=== PATIENT | female | born 1985 | race Caucasian/White ===

== ENCOUNTER 2016-08-21 05:47 | Inpatient (IN) | payer MEDICAID ==
[~2016-08-21] VITALS: Ht 172.7 cm; Wt 118.2 kg
[2016-08-21] MEDS ORDERED: LACTATED RINGERS 1,000 ML IV SCH ×2 (05:50)
[2016-08-21] MEDS ORDERED: OXYTOCIN 30U/ 0.9% NaCL 500ML 500 ML IV SCH (05:50)
[2016-08-21 06:00] VITALS: BP 106/70
[2016-08-21] MEDS ORDERED: PLEASE ENTER ALLERGIES MC SCH ×2 (06:00)
[2016-08-21] MEDS ORDERED: SODIUM CITRATE/CITRIC ACID 30 ML UDC PO ONE (06:00)
[2016-08-21] MEDS ORDERED: METOCLOPRAMIDE 5 MG/ML, 2ML IV ONE (06:00)
[2016-08-21] MEDS ORDERED: LACTATED RINGERS 1,000 ML IVBOLUS ONE (06:00)
[2016-08-21] MEDS ORDERED: METOCLOPRAMIDE 5 MG/ML, 2ML ONE ×2 (06:26→16:20)
[2016-08-21] MEDS ORDERED: NEWBORN KIT ONE (06:26)
[2016-08-21] MEDS ORDERED: SODIUM CITRATE/CITRIC ACID 30 ML UDC ONE ×2 (06:26→16:20)
[2016-08-21] MEDS: LACTATED RINGERS 1,000 ML IV SCH ×4 (09:12→19:12)
[2016-08-21] MEDS ORDERED: OXYTOCIN 30U/ 0.9% NaCL 500ML 500 ML ONE (09:18)
[2016-08-21] MEDS ORDERED: ONDANSETRON 2MG/ML, 2ML IV PRN (09:30)
[2016-08-21] MEDS ORDERED: CALCIUM CARBONATE 500 MG TAB.CHEW PO PRN (09:30)
[2016-08-21] MEDS ORDERED: METHYLERGONOVINE 0.2 MG/ML IM PRN (09:30)
[2016-08-21] MEDS ORDERED: MISOPROSTOL 200 MCG TABLET PR PRN (09:30)
[2016-08-21] MEDS ORDERED: METOCLOPRAMIDE 5 MG/ML, 2ML IV PRN (09:30)
[2016-08-21] MEDS ORDERED: morphine SULFATE 10 MG/ML, 1ML IVPush PRN ×2 (09:30)
[2016-08-21] MEDS: KETOROLAC 30 MG/1 ML IV SCH ×3 (09:30→19:18)
[2016-08-21] MEDS ORDERED: OXYcodone IR 5MG TABLET PO PRN (09:30)
[2016-08-21] MEDS ORDERED: BISACODYL 10 MG SUPP PR PRN (09:30)
[2016-08-21] MEDS ORDERED: ACETAMINOPHEN 325 MG TABLET ONE (10:12)
[2016-08-21] MEDS ORDERED: OXYcodone IR 5MG TABLET ONE (10:13)
[2016-08-21] MEDS: ACETAMINOPHEN 325 MG TABLET PO SCH (10:14)
[2016-08-21] MEDS: OXYcodone IR 5MG TABLET PO PRN ×3 (10:14→22:18)
[2016-08-21] MEDS: OXYTOCIN 30U/ 0.9% NaCL 500ML 500 ML IV SCH ×2 (10:18→19:12)
[2016-08-21 11:45] VITALS: BP 117/76
[2016-08-21 12:17] VITALS: BP 166/72
[2016-08-21] MEDS: SIMETHICONE 80 MG CHEW TAB PO PRN ×2 (12:48→22:15)
[2016-08-21] MEDS: PRENATAL VIT/IRON/FA 1 EACH TABLET PO SCH (13:13)
[2016-08-21 15:50] VITALS: BP 116/72
[2016-08-21] MEDS ORDERED: CEFAZOLIN 1,000 MG ONE (16:20)
[2016-08-21] MEDS ORDERED: EPHEDRINE 50 MG/ML, 1ML ONE (16:20)
[2016-08-21] MEDS ORDERED: KETOROLAC 30 MG/1 ML ONE (16:20)
[2016-08-21] MEDS ORDERED: OXYTOCIN 10 UNITS/ML, 1ML ONE (16:20)
[2016-08-21 20:00] VITALS: BP 112/75
[2016-08-22 00:20] VITALS: BP 130/90
[2016-08-22] MEDS: LACTATED RINGERS 1,000 ML IV SCH ×5 (01:12→17:12)
[2016-08-22] MEDS: KETOROLAC 30 MG/1 ML IV SCH ×4 (01:30→21:33)
[2016-08-22] MEDS: SIMETHICONE 80 MG CHEW TAB PO PRN ×2 (01:30→08:59)
[2016-08-22 05:00] VITALS: BP 118/78
[2016-08-22] MEDS: OXYTOCIN 30U/ 0.9% NaCL 500ML 500 ML IV SCH ×2 (05:12→15:12)
[2016-08-22] MEDS: OXYcodone IR 5MG TABLET PO PRN (05:45)
[2016-08-22 08:36] VITALS: BP 130/74
[2016-08-22] MEDS: PRENATAL VIT/IRON/FA 1 EACH TABLET PO SCH (08:59)
[2016-08-22] MEDS: DOCUSATE 100 MG CAPSULE PO PRN ×2 (08:59→20:00)
[2016-08-22] MEDS: ACETAMINOPHEN 325 MG TABLET PO SCH ×5 (09:30→21:30)
[2016-08-22 12:29] VITALS: BP 128/82
[2016-08-22] MEDS ORDERED: HYDROcodone/APAP 5/325 TABLET PO PRN (13:00)
[2016-08-22] MEDS: ONDANSETRON ODT 4 MG PO PRN (13:08)
[2016-08-22 15:51] VITALS: BP 133/80
[2016-08-22 20:00] VITALS: BP 128/72
[2016-08-23] MEDS: LACTATED RINGERS 1,000 ML IV SCH ×4 (01:12→06:58)
[2016-08-23] MEDS: OXYTOCIN 30U/ 0.9% NaCL 500ML 500 ML IV SCH ×2 (01:12→06:59)
[2016-08-23] MEDS: ACETAMINOPHEN 325 MG TABLET PO SCH ×3 (02:15→08:08)
[2016-08-23] MEDS: KETOROLAC 30 MG/1 ML IV SCH (04:01)
[2016-08-23 07:25] VITALS: BP 107/67
[2016-08-23] MEDS: ONDANSETRON ODT 4 MG PO PRN (07:44)
[2016-08-23] MEDS: PRENATAL VIT/IRON/FA 1 EACH TABLET PO SCH (08:07)
[2016-08-23] MEDS: DOCUSATE 100 MG CAPSULE PO PRN (08:08)
[2016-08-23] MEDS ORDERED: DOCU-30 PO (08:41)
[2016-08-23] MEDS ORDERED: IBUP-1222 PO (08:41)
[2016-08-23] MEDS: IBUPROFEN 600 MG TABLET PO SCH ×2 (10:57→17:00)
[2016-08-23] MEDS ORDERED: LACTATED RINGERS 1,000 ML IVBOLUS ONE (14:00)
[2016-08-23] MEDS ORDERED: HYDR-3240 PO (17:30)
== END 2016-08-23 18:00 | disposition home or self-care (01) | DRG 766 ==
LOC: LDIP 05:47 → 2NW 11:15
PROVIDERS: ADMIT Obstetrics & Gynecology; ATTEND Obstetrics & Gynecology
PROC: 10D00Z1 Extraction of Products of Conception, Low, Open Approach (ICD-10-PCS; principal; 2016-08-21)
DX: O34.211 Maternal care for low transverse scar from previous cesarean delivery (principal); Z37.0 Single live birth; K66.0 Peritoneal adhesions (postprocedural) (postinfection); O69.81X0 Labor and delivery complicated by cord around neck, without compression, not applicable or unspecified; Z3A.39 39 weeks gestation of pregnancy
CPT/HCPCS: 36415; 85025; 86850; 86900; J0690; J1885; Q0162; J2590; J2765; J7120